=== PATIENT | male | born 1985 | race Caucasian/White ===

== ENCOUNTER 2018-02-21 11:18 | Day surgery (SDC) | payer BC ==
[2018-02-21] MEDS ORDERED: MIDAZOLAM HCL 2MG/2ML VIAL IV ONE (11:19)
[2018-02-21] MEDS ORDERED: MORPHINE SULFATE 4MG/ML PREFILLED SYRINGE IVP ONE (11:19)
[2018-02-21] MEDS ORDERED: SEVOFLURANE 250 ML INH ONE (11:19)
[2018-02-21] MEDS ORDERED: ONDANSETRON HCL IV 4 MG/2 ML VIAL IVP ONE (11:19)
[2018-02-21] MEDS ORDERED: LIDOCAINE 2% MDV (20MG/ML) 20ML VIAL IV ONE (11:19)
[2018-02-21] MEDS ORDERED: CEFAZOLIN 2 Gram 2 GM/50 ML BAG IVPB ONE (11:19)
[2018-02-21] MEDS ORDERED: PROPOFOL 10 MG/ML VIAL IV ONE (11:19)
[2018-02-21] MEDS ORDERED: ACETAMINOPHEN 1,000 MG/100 ML BTL IV ONE (11:19)
[2018-02-21] MEDS ORDERED: KETOROLAC 30 MG/ML VIAL IVP ONE (11:19)
[2018-02-21] MEDS ORDERED: METHYLPREDNISOLONE 40MG/VIAL IM ONE (11:19)
[2018-02-21] MEDS ORDERED: FENTANYL PF 100MCG/2ML VIAL IV ONE (11:19)
[2018-02-21] MEDS ORDERED: BUPIVACAINE 0.5% W/EPI MPF 30 ML VIAL IVP ONE (11:19)
--- NOTE | 2018-02-22 09:38 | Operative Note ---
DATE OF SURGERY: 02/21/2018 PREOPERATIVE DIAGNOSIS: INTERNAL DERANGEMENT OF THE RIGHT KNEE. POSTOPERATIVE DIAGNOSES: 1. COMPLETE TEAR OF THE ANTERIOR CRUCIATE LIGAMENT, ACUTE. 2. DIFFUSE SYNOVITIS. 3. COMPLEX SPLIT TEAR INVOLVING THE POSTERIOR HORN OF THE MEDIAL MENISCUS. 4. FRINGE TEAR INVOLVING THE LATERAL HORN OF THE LATERAL MENISCUS. 5. CHONDRAL LESION OF THE NOTCH. PROCEDURE: 1. RIGHT KNEE ARTHROSCOPY WITH PARTIAL MEDIAL AND LATERAL MENISCECTOMIES. 2. RIGHT KNEE ARTHROSCOPY WITH COMPLETE SYNOVECTOMY. 3. RIGHT KNEE ARTHROSCOPY WITH INTERARTICULAR DEBRIDEMENT. 4. RIGHT KNEE ARTHROSCOPY WITH CHONDROPLASTY OF THE PATELLOFEMORAL COMPARTMENT. STAFF SURGEON: SANTY TY M.D. ANESTHESIA: GENERAL. PREPARATION: CHLORAPREP. INDIVIDUAL CONSIDERATIONS: NONE. PROCEDURE: The patient was taken to the Operating Room and placed supine on the operating table. He had a successful induction with general anesthetic. Examination under anesthesia showed increased excursion of Emilie's but only a trace pivot shift. He did have an effusion. The patient had a superior lateral inflow cannula placed. The skin was infiltrated with 0.5% Marcaine with Epinephrine prior. A blood-tinged effusion was drained. The knee was inflated with normal saline. An inferior medial and an inferior lateral portal were made in a similar fashion. The arthroscope was introduced through the inferior lateral portal up into the pouch. The patellofemoral compartment showed some grade 3 change on the lateral facet of the patella, which was smoothed, diffuse synovitis in the pouch and both gutters , and a chondral lesion about the size of an elongated quarter in the notch at the patellofemoral articulations with loose marginal cartilage. A synovectomy was done with a shaver and I smoothed off the loose cartilage marginally in the notch. Medially, he basically had a complex split bucket-handle tear involving the posterior horn of the medial meniscus and this was debrided out with basket forceps and a shaver. The remaining articular cartilage and medial and horns were intact. In the notch, the ACL was completely unstable and acutely torn. This was debrided out with a shaver. The PCL was intact. Laterally, the articular cartilage was normal but he had a fringe tear of the lateral meniscus and this was smoothed off with a shaver. After irrigation, portals were closed with victoria. The knee was injected with 20 mL of 0.5% Marcaine with Epinephrine along with 80 mg of DepoMedrol and a sterile Bulkee compressive dressing was applied. The patient tolerated the procedures well. Needle and sponge counts were correct. Estimated blood loss was minimal and he was taken back to Recovery in good condition. There were no complications. JOB NUMBER: [id number] MTDD
== END 2018-02-21 15:15 | disposition home or self-care (01) ==
LOC: SUR 11:18
PROVIDERS: ATTEND Orthopaedic Surgery
DX: S83.511A Sprain of anterior cruciate ligament of right knee, initial encounter (principal); S83.231A Complex tear of medial meniscus, current injury, right knee, initial encounter; S83.281A Other tear of lateral meniscus, current injury, right knee, initial encounter; M24.10 Other articular cartilage disorders, unspecified site
CPT/HCPCS: J1030; J1885; J2274; J2405

== ENCOUNTER 2018-04-05 07:35 | Day surgery (SDC) | payer BC ==
[~2018-04-05 07:35] MED LIST: ACETAMINOPHEN 1,000 MG/100 ML BTL IV ONE; CEFAZOLIN 2 Gram 2 GM/50 ML BAG IVPB ONE
[2018-04-05] MEDS ORDERED: MORPHINE SULFATE PF 10MG/10ML VIAL IV ONE (07:36)
[2018-04-05] MEDS ORDERED: PROPOFOL 10 MG/ML VIAL IV ONE (07:36)
[2018-04-05] MEDS ORDERED: ROPIVACAINE HCL (NAROPIN) /PF 5MG/ML 20ML VIAL IV ONE (07:36)
[2018-04-05] MEDS ORDERED: MIDAZOLAM HCL 2MG/2ML VIAL IV ONE (07:36)
[2018-04-05] MEDS ORDERED: DEXAMETHASONE 4 MG/ML 1ML VIAL IVP ONE (07:36)
[2018-04-05] MEDS ORDERED: KETOROLAC 30 MG/ML VIAL IVP ONE (07:36)
[2018-04-05] MEDS ORDERED: LIDOCAINE 2% MDV (20MG/ML) 20ML VIAL IV ONE (07:36)
[2018-04-05] MEDS ORDERED: BUPIVACAINE 0.5% W/EPI MPF 30 ML VIAL IVP ONE (07:36)
[2018-04-05] MEDS ORDERED: DESFLURANE 240 ML BTL INH ONE (07:36)
[2018-04-05] MEDS ORDERED: *PACU ONLY* KETAMINE HCL 10 MG/ML (20ML) VIAL IV ONE (07:36)
[2018-04-05] MEDS ORDERED: EPHEDRINE SULFATE 50 MG/ML ML IV ONE (07:36)
[2018-04-05] MEDS ORDERED: MEPERIDINE PCA 10 MG/ML VIAL IV ONE (07:36)
--- NOTE | 2018-04-08 14:40 | Operative Note ---
DATE: 04/05/18 PREOPERATIVE DIAGNOSIS: ACL DEFICIENT, RIGHT KNEE. POSTOPERATIVE DIAGNOSES: 1. ACL DEFICIENT, RIGHT KNEE. 2. COMPLEX TEAR OF THE POSTERIOR HORN OF THE MEDIAL MENISCUS. PROCEDURE: 1. ARTHROSCOPICALLY ASSISTED RIGHT KNEE ANTERIOR CRUCIATE LIGAMENT RECONSTRUCTION WITH BONE PATELLAR TENDON BONE AUTOGRAFT. 2. RIGHT KNEE ARTHROSCOPY WITH PARTIAL MEDIAL MENISCECTOMY. 3. BONE PATELLAR TENDON BONE AUTOGRAFT PROCUREMENT, RIGHT KNEE. STAFF SURGEON: SANTY TY M.D. ANESTHESIA: GENERAL. PREPARATION: CHLORAPREP. INDIVIDUAL CONSIDERATIONS: NONE. PROCEDURE: The patient was taken to the Operating Room and placed supine on the operating table. He had a successful induction of a general anesthetic. His right knee was prepped and draped in the usual fashion. Examination under anesthesia showed about a 1+ pivot shift with an increased excursion Emilie's. Patient had a superomedial inflow cannula placed. The skin was infiltrated with 0.5% Marcaine with Epinephrine prior. A clear effusion was drained and the knee was inflated with normal saline. An inferior medial and an inferior lateral portal were made in a similar fashion and the arthroscope was introduced through the inferior lateral portal up in the pouch. The patellofemoral joint showed small grade 3 change and no loose bodies were seen in the pouch or either gutter medially. He had had a previous medial meniscectomy but he had a further tear of the posterior horn inferiorly. I went ahead and trimmed this back to a stable rim. Most of the posterior horn was now removed; I removed it partially before. In the notch, the ACL was absent. The lateral compartment structures were normal. A motorized bur was then used to do a generous notchplasty. He had a very low roof and a large posterior ridge. Once this was done and after irrigation, the limb was elevated, the tourniquet was let down and inflated at 250 mmHg. The patient had a midline approach to the patella and tibial tubercle patellar tendon. Again, the skin was infiltrated with 0.5% Marcaine with Epinephrine prior. Sharp dissection carried down through the skin and subcutaneous tissue. Small veins were coagulated with a Bovie. Sharp dissection carried carefully over the top of the peritenon exposing the patella, patellar tendon, and tibial tubercle. I had elected, because it was large, to use a 10 mm graft knife. I obtained bony grafts of 10 x 20 to 25 mm off the patella and tibial tubercle using an oscillating saw and osteotome. The graft was smoothed in fashion then sized for a 10 mm tunnel. Holes were drilled on each side to pass a #5 Ti-Cron passing sutures. It was wrapped in a Betadine saline sponge and put off to the side. Patient then had a wound over the iliotibial band distally. Sharp dissection again carried down through the skin and subcutaneous tissue. Dissection was appreciated by infiltrating with 0.5% Marcaine with Epinephrine. The iliotibial band was opened, baskets were brought in anteriorly. The scope was placed through the inferior medial portal, rear entry guide passer placed in the inferolateral portal through the notch and out through the lateral wound. The rear entry guide was hooked onto this, the 11 o'clock position was chosen, posteriorly, a guidepin was drilled across, and then a 10 mm tunnel was drilled across this using a cannulated reamer. In a similar fashion, a 10 mm tunnel was drilled through the central footprint of the ACL through a tibial aimer. The course smoother passer was placed through it. The tibial tunnel was debrided out of any soft tissue formation of cyclopes lesion. The knee was irrigated out and debride. The graft had excellent isometry through flexion and extension moving less than a millimeter. The graft was hooked onto the passer, passed through the knee, tensioned and secured with 7 x 20 mm interference screws on either side. I checked the graft for impingement in the notch and there was none. The preoperative pivot shift and Emilie's was now gone. After irrigation , the lateral wound of the iliotibial band was closed with a running #1 Vicryl, the subcut was closed with 2-0+ Vicryl, and the skin was closed with victoria. In the anterior wound, reamings and graft were obtained for the tibial tubercle to fill the patellar defect. The patellar tendon was closed with multiple running #1 Vicryl, peritenon was closed with running 2-0+ Vicryl, subcut was closed with running 2-0+ Vicryl, and all skin wounds were closed with victoria. Patient had 20 mL of 0.5 Marcaine with Epinephrine along with 10 mg of Morphine injected into the knee and a sterile Bulkee compressive dressing was applied. The patient tolerated the procedure well. Needle and sponge counts were correct. Estimated blood loss was minimal and he was taken back to Recovery in good condition. There were no complications. cc: Dr. Marciano Cuellar JOB NUMBER: [id number] MTDD
== END 2018-04-05 13:00 | disposition home or self-care (01) ==
LOC: SUR 07:35
PROVIDERS: ATTEND Orthopaedic Surgery
DX: S83.231A Complex tear of medial meniscus, current injury, right knee, initial encounter (principal)
CPT/HCPCS: 29888; 29881; 01400; C1769; J1885; J0690; J2795; C1713; J2175